=== PATIENT | female | born 1985 | race Caucasian/White ===

== ENCOUNTER → 2018-07-15 09:31 | Outpatient (CLI) | payer OTHER, SELFPAY ==
[2018-07-17 10:26] LABS: HPV HC, High Risk Negative (Negative)
== END ==
PROVIDERS: Visit Provider Obstetrics & Gynecology
DX: Z12.72 Encounter for screening for malignant neoplasm of vagina (principal)
CPT/HCPCS: 87624; 88175; G0145

== ENCOUNTER → 2019-07-16 11:40 | Outpatient (CLI) | payer OTHER, SELFPAY ==
[2017-02-01 00:01] VITALS: BMI 28.7
== END ==
PROVIDERS: Visit Provider Obstetrics & Gynecology
DX: Z34.81 Encounter for supervision of other normal pregnancy, first trimester (principal); Z12.4 Encounter for screening for malignant neoplasm of cervix; Z11.3 Encounter for screening for infections with a predominantly sexual mode of transmission

== ENCOUNTER → 2020-07-19 16:50 | Outpatient (CLI) | payer OTHER, SELFPAY ==
[2017-02-01 00:01] VITALS: BMI 28.7
[2020-07-25 10:40] LABS: HPV APTIMA, High Risk Negative (Negative)
[2020-07-26 20:13] LABS: HPV Reflexed? YES, CHARGE PATIENT
== END ==
PROVIDERS: Visit Provider Student in an Organized Health Care Education/Training Program
DX: Z12.4 Encounter for screening for malignant neoplasm of cervix (principal)
CPT/HCPCS: 87624; 88175; G0145

== ENCOUNTER → 2020-08-30 15:48 | Outpatient (CLI) | payer OTHER, SELFPAY ==
[2017-02-01 00:01] VITALS: BMI 28.7
[2020-09-03 03:07] LABS: Chlamydia By Nucleic Acid AMP Negative (Negative)
[2020-09-05 04:27] LABS: Gonococcus By Nucleic Acid AMP Negative (Negative)
== END ==
PROVIDERS: Visit Provider Student in an Organized Health Care Education/Training Program
DX: Z32.01 Encounter for pregnancy test, result positive (principal)
CPT/HCPCS: 87491; 87591

== ENCOUNTER → 2020-09-05 13:55 | Outpatient (CLI) | payer OTHER, SELFPAY ==
[2017-02-01 00:01] VITALS: BMI 28.7
[2020-09-05 17:17] LABS: Absolute Lymphocyte Count 1.65 X10^3/uL (0.83-4.51); Absolute Neutrophil Count 6.8 X10^3/uL (2.0-7.7); Basophil# 0.05 X10^3/uL; Basophil% 0.5 % (0-1); Eosinophil# 0.19 X10^3/uL; Eosinophils% 2.1 % (0-5); Hematocrit 37.4 % (37-47); Hemoglobin 12.4 g/dL (12.0-15.0); Lymphocyte # 1.65 X10^3/ul (4.0); Mean Corp Hgb Conc 33.2 g/dL (32-36); Mean Corpuscular Hgb 30.2 pg (27.0-32.0); Mean Corpuscular Volume 91.2 fL (81-99); Mean Platelet Vol. 11.3 fl (6.2-12.0); Monocyte# 0.49 X10^3/uL; Monocyte% 5.3 % (0-10); NRBC Flagged by Analyzer 0 % (0-5); Neutrophil # 6.76 X10^3/uL (2.7-7.7); Neutrophil % 73.8 % (47-70); Platelet Count 314 K/mm3 (150-450); White Blood Count 9.2 K/mm3 (4.4-11.0)
[2020-09-05 17:40] LABS: T4 Free Direct 0.94 ng/dL (0.76-1.46); Thyroid Stim Hormone (TSH) 4.05 uIU/mL (0.358-3.74)
[2020-09-06 13:08] LABS: HIV - WCH Non-Reactive (Nonreactive); Hepatitis B Surface Antigen Non-Reactive (Nonreactive); Hepatitis C Antibody Non-Reactive (Nonreactive); Rubella IgG Reactive (Nonreactive)
[2020-09-08 02:34] LABS: Prenatal RPR NONREACTIVE (NONREACTIVE)
== END ==
PROVIDERS: Visit Provider Obstetrics & Gynecology
DX: Z34.81 Encounter for supervision of other normal pregnancy, first trimester (principal)
CPT/HCPCS: 36415; 81002; 84439; 84443; 85025; 86703; 86762; 86803; 87340

== ENCOUNTER → 2020-10-07 14:57 | Outpatient (CLI) | payer OTHER, SELFPAY ==
[2017-02-01 00:01] VITALS: BMI 28.7
[2020-10-07 17:12] LABS: Free T3 2.1 pg/mL (2.18-3.98); T4 Free Direct 1.02 ng/dL (0.76-1.46); Thyroid Stim Hormone (TSH) 5.12 uIU/mL (0.358-3.74)
== END ==
PROVIDERS: Visit Provider Student in an Organized Health Care Education/Training Program
DX: Z32.01 Encounter for pregnancy test, result positive (principal)
CPT/HCPCS: 36415; 84439; 84443; 84481; 87086

== ENCOUNTER → 2020-12-26 08:29 | Outpatient (CLI) | payer OTHER, SELFPAY ==
[2020-12-26 09:09] LABS: Hematocrit 36.9 % (37-47); Hemoglobin 12.1 g/dL (12.0-15.0); Mean Corp Hgb Conc 32.8 g/dL (32-36); Mean Corpuscular Hgb 30.6 pg (27.0-32.0); Mean Corpuscular Volume 93.4 fL (81-99); Platelet Count 297 K/mm3 (150-450); RBC Distribution Width CV 12.5 % (11.6-14.6); RBC Distribution Width SD 42.9 fl (35.1-43.9); Red Blood Count 3.95 M/mm3 (4.2-5.4)
[2020-12-26 09:14] LABS: Glucose Challenge Gest 1H 50g 100 mg/dL (70-140)
== END ==
PROVIDERS: Visit Provider Student in an Organized Health Care Education/Training Program
DX: Z34.82 Encounter for supervision of other normal pregnancy, second trimester (principal)
CPT/HCPCS: 36415; 82950; 85027

== ENCOUNTER → 2021-03-27 17:13 | Outpatient (CLI) | payer OTHER, SELFPAY ==
[2017-02-01 00:01] VITALS: BMI 28.7
== END ==
PROVIDERS: Visit Provider Student in an Organized Health Care Education/Training Program
DX: Z36.85 Encounter for antenatal screening for Streptococcus B (principal)
CPT/HCPCS: 87077; 87081; 87186

== ENCOUNTER 2021-04-27 07:20 | Inpatient (IN) | payer OTHER, SELFPAY ==
[2017-02-01 00:01] VITALS: BMI 28.7
[2021-04-27] VITALS (42 sets, daily range): BP systolic 110–158; BP diastolic 62–91; PULSE 67–107; RESP 18; TEMP 36.5–37.2; O2SAT 92–100; BMI 29.0
--- NOTE | 2021-04-27 08:28 | PCM.HP.BLA ---
History and Physical Date of Admission: 04/27/21 Chief complaint: Induction of labor at term History present illness: 35-year-old 41 weeks and 5 days with KEVIN: 04/15/2021 by LMP arrives for induction of labor at term. Denies headache, chest pain, shortness of breath, nausea vomiting, right upper quadrant pain. Patient states good movement. complicated by AMA, MTHFR Homo, TAHIR-1 heterozygous, Scott's Obstetric history: G1: Primary section for cord prolapse 41 weeks 04/11/2013 G2: TOLAC 40 weeks 02/09/2015 G3: TOLAC 41wk 02/01/2017 G4: SAB G5: Current PMH: MTHFR Homo, TAHIR-1 heterozygous, Scott's Medications: PNV, ASA, Synthroid PSH: LEEP, C/S Allergies: PCN (Hives) Social: Denies smoking, alcohol use, drug use Family history: Denies history DVT or PE Review of systems: Besides above pertinent positive review systems performed found to be negative Physical Exam: Vitals: Blood pressure 113/76 pulse 90 SpO2 97 General: Normal-appearing no acute distress HEENT: Normocephalic/atraumatic no cervical of adenopathy Cardiac/respiratory: No use of accessory muscles nonlabored breathing Abdomen: Soft, nontender, gravid Extremities: No peripheral edema normal peripheral pulses Psych: Normal affect normal demeanor nonpressured speech Assessment and plan: 35 at 41 weeks and 5 days here for TOLAC at term. Admit labor and delivery 9 CFM GBS positive for clindamycin with penicillin allergy Pitocin induction, for AROM after penicillin Routine orders Anesthesia to see
[2021-04-27 08:33] LABS: Absolute Lymphocyte Count 1.96 X10^3/uL (0.83-4.51); Absolute Neutrophil Count 5.6 X10^3/uL (2.0-7.7); Basophil# 0.03 X10^3/uL; Basophil% 0.4 % (0-1); Eosinophil# 0.19 X10^3/uL; Eosinophils% 2.2 % (0-5); Hematocrit 37.7 % (37-47); Hemoglobin 12.3 g/dL (12.0-15.0); Lymphocyte # 1.96 X10^3/ul (0.83-4.51); Lymphocyte % 23.1 % (19-41); Mean Corp Hgb Conc 32.6 g/dL (32-36); Mean Corpuscular Hgb 28.6 pg (27.0-32.0); Mean Corpuscular Volume 87.7 fL (81-99); Mean Platelet Vol. 11.4 fl (6.2-12.0); Monocyte# 0.64 X10^3/uL; Monocyte% 7.5 % (0-10); NRBC Flagged by Analyzer 0 % (0-5); Neutrophil # 5.64 X10^3/uL (2.7-7.7); Neutrophil % 66.3 % (47-70); Platelet Count 225 K/mm3 (150-450); RBC Distribution Width CV 15.1 % (11.6-14.6); RBC Distribution Width SD 47.8 fl (35.1-43.9); White Blood Count 8.5 K/mm3 (4.4-11.0)
[2021-04-27] MEDS: Lactated Ringers 1,000 ML 50 ML IV (08:33)
[2021-04-27] MEDS: Oxytocin 30 units/NS 500 ml 30 UNITS/500 ML IV.SOLN IV (09:20)
[2021-04-27] MEDS: Lactated Ringers 500 ML 999 ML IV ×2 (11:24→14:28)
--- NOTE | 2021-04-27 12:57 | PN.OBGYN_ITS ---
Subjective Subjective Patient resting comfortably in chair. Going natural Objective Data Objective Data Vital Signs: Vital Signs Temp Pulse BP Pulse Ox 98.8 F 74 117/78 100 04/27/21 12:29 04/27/21 12:28 04/27/21 12:04/27/21 10:18 Weight: 169 lb 8.568 oz Body Mass Index (BMI) 29.0 Intake & Output: Intake and Output for Last 24 Hours 04/25/21 04/26/21 04/27/21 23:59 23:59 23:59 Intake Total 761.67 / 761.67 Balance 761.67 / 761.67 Lab / Micro Data Result Diagrams: 04/27/21 08:05 Labs: Laboratory Results - last 24 hr 04/27/21 08:05: WBC 8.5, RBC 4.30, Hgb 12.3, Hct 37.7, MCV 87.7, MCH 28.6, MCHC 32.6, RDW Std Deviation 47.8 H, RDW Coeff of Kena 15.1 H, Plt Count 225, MPV 11.4, Immature Gran % (Auto) 0.500, Neut % (Auto) 66.3, Lymph % (Auto) 23.1, [place] % (Auto) 7.5, Eos % (Auto) 2.2, Baso % (Auto) 0.4, Absolute Neuts (auto) 5.6, Absolute Lymphs (auto) 1.96, Nucleated RBC % 0 04/27/21 08:05: Blood Type A POSITIVE, Antibody Screen NEGATIVE Micro: Microbiology 04/27/21 08:05 Mucosa - Nose SARS-CoV-2 Antigen (Rapid) - Final Physical Exam Const alert, oriented x3, no apparent distress, average body habitus, healthy appearing and well nourished HEENT normocephalic and moist oral mucous membranes Head and Scalp: atraumatic Resp normal respiratory effort, no retractions and no use of accessory muscles Narrative: Cervical exam: 360/-3. AROM clear fluid Extremity normal to inspection, full ROM and no clubbing, cyanosis or edema Psych mental status grossly normal, affect normal, speech normal and activity/motor behavior normal NST FHR Rate Baby A Baseline: 140 Variability:: Moderate Accelerations:: 15 x 15 Decelerations:: None Uterine Activity:: Every 8 minutes Assessment & Plan (1) 41 weeks gestation of : PLAN: Patient seen and examined. Comfortable going natural currently. Cervical exam /-3. AROM clear fluid. We will continue to titrate Pitocin. Continue clindamycin for GBS prophylaxis.
[2021-04-27] MEDS: fentaNYL-bupivacaine (epidural) 100 ML BAG EPIDURAL (16:20)
[2021-04-27] MEDS: Oxytocin 30 units/NS 500 ml 30 UNITS/500 ML IV.SOLN 334 UNITS IV (17:45)
--- NOTE | 2021-04-27 17:51 | EX.PCM.OBRPT ---
Vaginal Delivery Findings Description of Procedure: Normal spontaneous vaginal delivery of a viable male , AZRA. Head and shoulders delivered with ease. Cord cut and clamped. Baby handed off to mom. Placenta delivered via cord traction and fundal massage. No lacerations noted. EBL 250 cc Apgars 9/9
[2021-04-27] MEDS: 0.9% Saline Lock 10 ML Syringe IV (21:02)
[2021-04-27] MEDS: Ibuprofen 600 MG Tablet PO (22:03)
[2021-04-28 01:00] VITALS: BP 110/75; PULSE 72; RESP 16; TEMP 36.6; O2SAT 97
[2021-04-28 04:10] VITALS: BP 106/66; PULSE 69; RESP 16; TEMP 36.4; O2SAT 97
[2021-04-28] MEDS: Levothyroxine 88 MCG Tablet PO (06:22)
[2021-04-28 08:46] VITALS: BP 101/66; PULSE 79; RESP 16; TEMP 36.7; O2SAT 98
[2021-04-28] MEDS: Senna/Docusate Sodium 1 Tablet PO (08:57)
[2021-04-28] MEDS: Ibuprofen 600 MG Tablet PO ×2 (08:57→15:19)
[2021-04-28 11:27] VITALS: BP 95/68; PULSE 74; RESP 16; TEMP 36.1; O2SAT 98
[2021-04-28 15:20] VITALS: BP 106/88; PULSE 71; RESP 16; TEMP 36.6
--- NOTE | 2021-04-28 17:40 | PCM.PN.OB ---
Subjective Subjective No issues overnight or complaints today. Out of bed, ambulating. Denies heavy lochia. is nursing well. Patient is considering discharge home this evening or tomorrow as her oldest will be 8 years old tomorrow. Objective Data Objective Data Vital Signs: Vital Signs Temp Pulse Resp BP Pulse Ox 97.8 F 71 16 106/88 H 98 04/28/21 15:20 04/28/21 15:20 04/28/21 15:20 04/28/21 15:20 04/28/21 11:27 Oxygen Delivery Method Room Air Weight: 76.9 kg Body Mass Index (BMI) 29.0 Intake & Output: Intake and Output for Last 24 Hours 04/26/21 04/27/21 04/28/21 23:59 23:59 23:59 Intake Total 2750.90 / 2750.90 Output Total 300 / 300 800 / 800 Balance 2450.90 / 2450.90 -800 / -800 Lab / Micro Data Result Diagrams: 04/27/21 08:05 Micro: Microbiology 04/27/21 08:05 Mucosa - Nose SARS-CoV-2 Antigen (Rapid) - Final Physical Exam Const alert, oriented x3 and no apparent distress Resp normal respiratory effort and normal air movement Cardio regular rate, regular rhythm, S1 normal heart sound and S2 normal heart sound Uterus Palpation: uterus fundus firm and other OB fundus nontender Extremity no calf tenderness Neuro oriented x3 Assessment & Plan (1) (vaginal after ): COMMENT: day #1 PLAN: A positive Breast-feeding Routine care We will plan for DC home this evening or tomorrow morning at patient preference
--- NOTE | 2021-04-28 17:46 | PCM.DC ---
Discharge Instructions Diet Discharge Diet: No restrictions Activity May resume sexual activity in: 4-6 weeks Dressing / Incision Call your doctor if you observe: Using more than 1 pad per hour, Shortness of breath, Chest pain, Calf discomfort, Uncontrolled pain and - (Persistent or severe headache) Follow Up Care Please Follow Up With: Zuleyka Arriola MD When: 3 weeks for telehealth follow up 6 weeks for visit Test Results: Test results from this visit will be discussed in further detail at your follow-up appointment, if applicable. Discharge Plan Admission Admit Date/Time: 04/27/21 07:20 Primary Reason for Your Visit: Vaginal after section Attending Provider: Manan Mcgrath Primary Care Provider: Care Physician,Radha Primary Instructions Patient Instructions: After a Vaginal Discharge Orders/Prescriptions Prescriptions: New ibuprofen 600 mg tablet 600 mg PO Q8H PRN PRN (Reason: pain) Qty: 30 RF: 0 Continued Prenatabs FA 1 TABLET tablet 1 tab PO DAILY RF: 0 levothyroxine 88 mcg Tablet 88 mcg PO DAILY RF: 0 Discontinued folic acid 1 MG tablet 1 mg PO DAILY@0800 RF: 0 aspirin [Baby Aspirin] 81 mg Tablet,Chewable 81 mg PO DAILY RF: 0 Referrals / Follow Up: Care Physician,No Primary [Primary Care Provider] - Disposition Disposition (needs filled in before D/C Order can be placed): Home, Self Care
[2021-04-28 21:24] VITALS: BP 112/73; PULSE 71; RESP 18; TEMP 36.3
== END 2021-04-28 22:00 | disposition home or self-care (01) | DRG 807 ==
PROVIDERS: Admitting Provider Obstetrics & Gynecology; Referring Provider Obstetrics & Gynecology; Visit Provider Obstetrics & Gynecology
DX: O34.219 Maternal care for unspecified type scar from previous cesarean delivery (principal); Z37.0 Single live birth; O99.284 Endocrine, nutritional and metabolic diseases complicating childbirth; Z3A.41 41 weeks gestation of pregnancy; E06.3 Autoimmune thyroiditis
CPT/HCPCS: 59025; 59050; 85025; 86850; 86900; 86901; 87426; 99218; J7120; A4216; G0378

== ENCOUNTER → 2022-12-06 | Outpatient (CLI) | payer BC, SELFPAY ==
[2022-12-06 17:13] LABS: Absolute Lymphocyte Count 2.24 X10^3/uL (0.83-4.51); Absolute Neutrophil Count 6.4 X10^3/uL (2.0-7.7); Basophil# 0.04 X10^3/uL; Basophil% 0.4 % (0-1); Eosinophil# 0.16 X10^3/uL; Eosinophils% 1.7 % (0-5); Hematocrit 35.5 % (37-47); Hemoglobin 11.6 g/dL (12.0-15.0); Lymphocyte # 2.24 X10^3/ul (0.83-4.51); Lymphocyte % 23.8 % (19-41); Mean Corp Hgb Conc 32.7 g/dL (32-36); Mean Corpuscular Hgb 28.8 pg (27.0-32.0); Mean Corpuscular Volume 88.1 fL (81-99); Mean Platelet Vol. 9.7 fl (6.2-12.0); Monocyte# 0.54 X10^3/uL; Monocyte% 5.7 % (0-10); NRBC Flagged by Analyzer 0 % (0-5); Neutrophil % 68.1 % (47-70); Platelet Count 352 K/mm3 (150-450); RBC Distribution Width CV 13.4 % (11.6-14.6); RBC Distribution Width SD 43.2 fl (35.1-43.9); Red Blood Count 4.03 M/mm3 (4.2-5.4); White Blood Count 9.4 K/mm3 (4.4-11.0)
[2022-12-06 18:46] LABS: HIV - WCH Non-Reactive (Nonreactive); Hepatitis B Surface Antigen Non-Reactive (Nonreactive); Hepatitis C Antibody Non-Reactive (Nonreactive); Rubella IgG Reactive (Nonreactive); Syphilis Antibodies Non-reactive
[2022-12-08 12:37] LABS: V-Zoster IgG (Immunity) 730 index (Immune >165)
== END | disposition home or self-care (01) ==
LOC: WOBLAB 16:43
PROVIDERS: Visit Provider Obstetrics & Gynecology
DX: Z34.81 Encounter for supervision of other normal pregnancy, first trimester (principal)
CPT/HCPCS: 36415; 85025; 86703; 86762; 86780; 86787; 86803; 87086; 87340

== ENCOUNTER → 2023-04-11 | Outpatient (CLI) | payer BC, SELFPAY ==
[2023-04-11 10:12] LABS: Absolute Lymphocyte Count 1.62 X10^3/uL (0.83-4.51); Absolute Neutrophil Count 6.3 X10^3/uL (2.0-7.7); Basophil# 0.04 X10^3/uL; Basophil% 0.5 % (0-1); Eosinophil# 0.24 X10^3/uL; Eosinophils% 2.8 % (0-5); Hematocrit 36.2 % (37-47); Hemoglobin 11.6 g/dL (12.0-15.0); Lymphocyte # 1.62 X10^3/ul (0.83-4.51); Lymphocyte % 18.6 % (19-41); Mean Corpuscular Hgb 29.1 pg (27.0-32.0); Mean Corpuscular Volume 90.7 fL (81-99); Mean Platelet Vol. 10.5 fl (6.2-12.0); Monocyte# 0.46 X10^3/uL; Monocyte% 5.3 % (0-10); NRBC Flagged by Analyzer 0 % (0-5); Neutrophil # 6.33 X10^3/uL (2.7-7.7); Neutrophil % 72.5 % (47-70); Platelet Count 296 K/mm3 (150-450); RBC Distribution Width CV 12.8 % (11.6-14.6); RBC Distribution Width SD 42.5 fl (35.1-43.9); Red Blood Count 3.99 M/mm3 (4.2-5.4); White Blood Count 8.7 K/mm3 (4.4-11.0)
[2023-04-11 10:23] LABS: Glucose Challenge Gest 1H 50g 104 mg/dL (70-140)
[2023-04-11 10:45] LABS: Syphilis Antibodies Non-reactive
== END | disposition home or self-care (01) ==
LOC: WOBLAB 08:54
PROVIDERS: Visit Provider Obstetrics & Gynecology
DX: Z34.82 Encounter for supervision of other normal pregnancy, second trimester (principal)
CPT/HCPCS: 36415; 82950; 85025; 86780

== ENCOUNTER 2023-07-16 14:25 | Inpatient (IN) | payer BC, SELFPAY ==
[2023-07-16] VITALS (17 sets, daily range): BP systolic 105–132; BP diastolic 62–87; PULSE 81–116; TEMP 36.4–37.1; O2SAT 98; BMI 30.4
[2023-07-16] MEDS: Clindamycin 900 MG/50 ML BAG 75 MG IV (15:10)
[2023-07-16] MEDS: Lactated Ringers 1,000 ML 50 ML IV (15:15)
[2023-07-16 15:27] LABS: Absolute Lymphocyte Count 1.84 X10^3/uL (0.83-4.51); Absolute Neutrophil Count 7.1 X10^3/uL (2.0-7.7); Basophil# 0.03 X10^3/uL; Basophil% 0.3 % (0-1); Hematocrit 34.5 % (37-47); Hemoglobin 11.1 g/dL (12.0-15.0); Lymphocyte # 1.84 X10^3/ul (0.83-4.51); Lymphocyte % 19.3 % (19-41); Mean Corp Hgb Conc 32.2 g/dL (32-36); Mean Corpuscular Hgb 27.1 pg (27.0-32.0); Mean Corpuscular Volume 84.4 fL (81-99); Mean Platelet Vol. 10.4 fl (6.2-12.0); Monocyte# 0.42 X10^3/uL; Monocyte% 4.4 % (0-10); NRBC Flagged by Analyzer 0 % (0-5); Neutrophil # 7.11 X10^3/uL (2.7-7.7); Neutrophil % 74.6 % (47-70); Platelet Count 263 K/mm3 (150-450); RBC Distribution Width CV 13.5 % (11.6-14.6); RBC Distribution Width SD 41.8 fl (35.1-43.9); Red Blood Count 4.09 M/mm3 (4.2-5.4); White Blood Count 9.5 K/mm3 (4.4-11.0)
[2023-07-16 16:44] LABS: Syphilis Antibodies Non-reactive
--- NOTE | 2023-07-16 20:42 | HP.PCM.OB_ITS ---
HPI - General General Date of Admission: 07/16/23 Date of Service: 07/16/23 HPI Narrative EMILIA MERLOS, is a 37 F who presents with ctxs. Maternal Data Information Final KEVIN: 07/08/23 Gestational age: 41&1 PFSH [facility] Medical History (Updated 07/16/23 @ 20:[address] Sanford Hinkle MD) Advanced maternal age (AMA) in Heterozygous for MTHFR gene mutation Thyroid disorder Vaginal after Home Medications vits,calcium no.78-iron fumarate-folic acid 29 mg-1 mg tablet (Prenatabs FA) 1 tab PO DAILY 02/08/15 [History Last Taken 04/26/21 22:00] aspirin 81 mg tablet,delayed release 81 mg PO DAILY prophalyxis 07/16/23 [History Last Taken 07/15/23 20:00] levothyroxine 125 mcg tablet 125 mcg PO DAILY hypothyroidism 07/16/23 [History Last Taken 07/16/23 07:01] liothyronine 5 mcg tablet 5 mcg PO DAILY hypothyroidism 07/16/23 [History Last Taken 07/16/23 07:00] Allergy/AdvReac Type Severity Reaction Status Date / Time Penicillins Allergy Hives Verified 07/16/23 15:55 Surgical History (Updated 07/16/23 @ 20:[address] Sanford Hinkle MD) History of gynecologic surgery Previous section Social History Smoking Status: Never smoker History Elective abortions Hx Para 4 Spontaneous abortions Hx # Term Pregnancies Ectopic pregnancies Hx # Pregnancies Multiple births # of living children NST FHR Rate Baby A Baseline: 145 Variability:: Moderate Accelerations:: 15 x 15 Decelerations:: Variable Vital Signs Vital Signs Vital Signs: 07/16/23 14:50 07/16/23 14:50 07/16/23 14:51 Temperature Temperature Source Tympanic Pulse Rate 100 Blood Pressure 129/84 H BP Systolic 129 BP Diastolic 84 Pulse Ox 07/16/23 14:51 07/16/23 16:45 07/16/23 16:45 Temperature 98.8 F Temperature Source Pulse Rate 97 Blood Pressure 132/77 H BP Systolic 132 BP Diastolic 77 Pulse Ox 07/16/23 16:45 07/16/23 16:46 07/16/23 16:46 Temperature Temperature Source Temporal Pulse Rate 113 H Blood Pressure BP Systolic BP Diastolic Pulse Ox 98 07/16/23 16:45 07/16/23 18:00 07/16/23 18:00 Temperature 98.5 F Temperature Source Pulse Rate 96 Blood Pressure 121/73 H BP Systolic 121 BP Diastolic 73 Pulse Ox 07/16/23 18:01 07/16/23 18:01 07/16/23 19:17 Temperature 98.1 F Temperature Source Temporal Pulse Rate Blood Pressure 117/71 BP Systolic 117 BP Diastolic 71 Pulse Ox 07/16/23 19:17 07/16/23 20:16 07/16/23 20:17 Temperature Temperature Source Temporal Pulse Rate 84 Blood Pressure 125/72 H BP Systolic 125 BP Diastolic 72 Pulse Ox 07/16/23 20:17 07/16/23 20:16 Temperature 98.8 F Temperature Source Pulse Rate 84 Blood Pressure BP Systolic BP Diastolic Pulse Ox Weight Weight: 177 lb 8 oz Body Mass Index (BMI) 30.4 Labs Labs Labs: Blood Type A POSITIVE Antibody Screen NEGATIVE Hct 34.5 % (37-47) L Hgb 11.1 g/dL (12.0-15.0) L Syphilis Total Ab Non-reactive VZV IgG Antibody 730 index (Immune >165) Rubella IgG Antibody Reactive (Nonreactive) Hep Bs Antigen Non-Reactive (Nonreactive) Hepatitis C Antibody Non-Reactive (Nonreactive) Chlamydia DNA (MARYA) Negative (Negative) N.gonorrhoeae DNA (MARYA) Negative (Negative) HIV 1&2 Antibody Non-Reactive (Nonreactive) Glucose 1 Hr 50 gm 104 mg/dL (70-140) Group B Strep DNA POSITIVE (Negative) H Rhogam given: No Miscellaneous Test Assessment & Plan (1) AMA (advanced maternal age) multigravida 35+: QUALIFIERS: Trimester: third trimester Qualified Code(s): O09.523 - Supervision of elderly multigravida, third trimester COMMENT: @ 41&1 (2) Hx successful (vaginal after ), currently : (3) Post-dates : QUALIFIERS: Post-term type: 40-42 weeks gestation Qualified Code(s): O48.0 - Post-term PLAN: Plan Admit to L&D Expectant management AROM clear fluid GBS positive - clindamycin per sensitivities Pain - plans for nitrous, declines epidural at this time EFW - less than 4500g, patient with adequate pelvis TOLAC - informed consent signed after discussing R/B/A
--- NOTE | 2023-07-16 22:48 | EX.PCM.OBRPT ---
Maternal Data Information Final KEVIN: 07/08/23 Gestational age: 41&1 Vaginal Delivery Maternal Presentation Maternal Presentation: Active Labor Maternal Presentation: Patient presented in early labor. After AROM she was in active labor. Operative Information Date of Procedure: 07/16/23 Pre-Operative Diagnosis: (1) AMA (2) Post-dates Post-Operative Diagnosis: Same Surgery / Procedure Performed: Spontaneous Vaginal Delivery Type of Anesthesia: None Estimated Blood Loss: 200ml Findings Description of Procedure: Patient prepped & draped when C/C/+2. She pushed well to deliver the head. Tight nuchal cord was clamped & cut. head gently guided to allow delivery of anterior and posterior shoulders. No excess traction placed on head. Body delivered easily. Placenta delivered with gentle traction and good uterine tone obtained. Presentation: LYDIA Amniotic Membrane Rupture Type: Artificial Amniotic Fluid Description: Clear Placental Delivery Description: Expressed Placenta Disposition: [facility] Specimen(s) Removed: Placenta Cord Vessel Description: 3 Vessels Cord Entanglement: Around neck x 1, tight Nuchal Cord Compression: Without compression Infant A Gender: Male (1 minute): 1 (5 minute): 9 Delayed Cord Clamping: No Post Vaginal Delivery Medications Given After Delivery: IV Pitocin and IM Pitocin Episiotomy Description: None Laceration: None Complication Complications: None
[2023-07-16] MEDS: Oxytocin 15 Units/NS 250ml 15 UNITS/250 ML IV.SOLN 83 UNITS IV (23:15)
[2023-07-16] MEDS: Oxytocin 10 UNITS/ML Vial IM (23:18)
[2023-07-16] MEDS: Ketorolac 30 MG/ML Syringe IV (23:31)
[2023-07-17] VITALS (16 sets, daily range): BP systolic 96–133; BP diastolic 51–69; PULSE 74–91; RESP 14–18; TEMP 36.6–36.9; O2SAT 97–99
[2023-07-17] MEDS: Levothyroxine 125 MCG Tablet PO (07:09)
[2023-07-17] MEDS: Liothyronine 5 MCG Tablet PO (07:10)
--- NOTE | 2023-07-17 08:22 | PCM.PN.OB ---
Subjective Subjective Patient seen at bedside. Feeling good. Denies any pain. Ambulating and voiding without difficulty. Lochia decreasing. Objective Data Objective Data Vital Signs: Vital Signs Temp Pulse Resp BP Pulse Ox O2 Del Method 98 F 74 16 96/51 L 97 Room Air 07/17/23 04:24 07/17/23 04:24 07/17/23 04:24 07/17/23 04:24 07/17/23 04:24 07/17/23 04:24 Oxygen Delivery Method Room Air Weight: 177 lb 8 oz Body Mass Index (BMI) 30.4 Intake & Output: Intake and Output for Last 24 Hours 07/15/23 07/16/23 07/17/23 23:59 23:59 23:59 Intake Total 1050.0 / 1050.0 250 / 250 Output Total 200 / 200 Balance 1050.0 / 1050.0 50 / 50 Lab / Micro Data 07/16/23 15:10 Labs: Laboratory Results - last 24 hr 07/16/23 15:10: WBC 9.5, RBC 4.09 L, Hgb 11.1 L, Hct 34.5 L, MCV 84.4, MCH 27.1, MCHC 32.2, RDW Std Deviation 41.8, RDW Coeff of Kena 13.5, Plt Count 263, MPV 10.4, Immature Gran % (Auto) 0.400, Neut % (Auto) 74.6 H, Lymph % (Auto) 19.3, [place] % (Auto) 4.4, Eos % (Auto) 1.0, Baso % (Auto) 0.3, Absolute Neuts (auto) 7.1, Absolute Lymphs (auto) 1.84, Nucleated RBC % 0, Syphilis Total Ab Non-reactive, Blood Type A POSITIVE, Antibody Screen NEGATIVE ROS Eyes Eyes: Denies blurry vision, change in vision or spots in vision ENT HEENT: Denies dizziness or headache(s) Cardiovascular Cardiovascular: Denies abdominal pain, chest pain or dyspnea Respiratory/Chest Respiratory/Chest: Denies cough, dyspnea, shortness of breath at rest or shortness of breath with exertion Gastrointestinal Gastrointestinal: Denies abdominal pain, diarrhea or vomiting Genitourinary Genitourinary: Denies change in urinary stream, difficulty urinating or dysuria Musculoskeletal Musculoskeletal: Reports none Integumentary Integumentary: Denies rash Neurologic Neurologic: Denies dizziness, headache(s), memory loss or weakness Physical Exam Const alert and no apparent distress General Appearance: cooperative and comfortable Exam Limitations: no limitations HEENT normocephalic Eyes General Eye: normal appearance of both eyes Neck full ROM General: normal visual inspection Chest Chest: symmetrical chest wall rise Resp normal respiratory effort and normal air movement Effort and Inspection: symmetric chest movement Auscultation: clear to auscultation bilaterally Cardio regular rate and regular rhythm GI normal to inspection, nondistended, normoactive bowel sounds Back/Spine normal ROM Extremity full ROM and no calf tenderness General Extremity: normal exam except as noted Skin no rashes or lesions noted Neuro CN's II-XII intact bilaterally Psych mental status grossly normal Assessment & Plan (1) , delivered, current hospitalization: (2) AMA (advanced maternal age) multigravida 35+: QUALIFIERS: Trimester: third trimester Qualified Code(s): O09.523 - Supervision of elderly multigravida, third trimester COMMENT: @ 41&1 (3) Care and examination of lactating mother: PLAN: Plan PPD 1 Routine care support Pain control Anticipate discharge home tomorrow
[2023-07-17] MEDS: Acetaminophen 500 MG Tablet 1000 MG PO (09:12)
[2023-07-17] MEDS: Ibuprofen 600 MG Tablet PO (12:55)
[2023-07-17] MEDS: Senna/Docusate Sodium 1 Tablet PO (20:13)
[2023-07-18 03:36] VITALS: BP 100/54; PULSE 82
[2023-07-18 03:37] VITALS: BP 100/54; PULSE 82; RESP 18
[2023-07-18] MEDS: Liothyronine 5 MCG Tablet PO (06:04)
[2023-07-18] MEDS: Levothyroxine 125 MCG Tablet PO (06:04)
--- NOTE | 2023-07-18 06:13 | PCM.DC.SUM ---
Providers Date of Admission: 07/16/23 Primary Care Physician: Dr. Nghia Gauthier, Reason For Visit: VAGINAL DELIVERY Diagnosis Discharge Diagnosis (1) , delivered, current hospitalization: Status: Acute Code(s): O34.219 - Maternal care for unspecified type scar from previous delivery (2) AMA (advanced maternal age) multigravida 35+: Status: Acute Code(s): O09.529 - Supervision of elderly multigravida, unspecified trimester Qualifiers: Trimester: third trimester Qualified Code(s): O09.523 - Supervision of elderly multigravida, third trimester (3) Care and examination of lactating mother: Status: Acute Code(s): Z39.1 - Encounter for care and examination of lactating mother Plan PPD 2 Routine care D/C home with follow up in office Medications at Discharge Home Medications vits,calcium no.78-iron fumarate-folic acid 29 mg-1 mg tablet (Prenatabs FA) 1 tab PO DAILY 02/08/15 levothyroxine 125 mcg tablet 125 mcg PO DAILY hypothyroidism 07/16/23 liothyronine 5 mcg tablet 5 mcg PO DAILY hypothyroidism 07/16/23 Hospital Course Operations None Summary of Care Provided Minutes Spent on Discharge: 20 Hospital Course: Patient had . Hospital course was uneventful Physical Exam Const alert and no apparent distress General Appearance: cooperative and comfortable Exam Limitations: no limitations HEENT normocephalic Eyes General Eye: normal appearance of both eyes Neck full ROM General: normal visual inspection Chest Chest: symmetrical chest wall rise Resp normal respiratory effort and normal air movement Effort and Inspection: symmetric chest movement Auscultation: clear to auscultation bilaterally Cardio regular rate and regular rhythm GI normal to inspection, nondistended, normoactive bowel sounds Back/Spine normal ROM Extremity full ROM and no calf tenderness General Extremity: normal exam except as noted Skin no rashes or lesions noted Neuro CN's II-XII intact bilaterally Psych mental status grossly normal Weight / BMI Weight Weight: 177 lb 8 oz Body Mass Index (BMI) 30.4 ABG / Lab / Microbiology Data 07/16/23 15:10 D/C Instructions Discharge Diet: No restrictions Discharge Activity: Return to Normal Activity, May Shower and May Take a Tub Bath May resume sexual activity in: 4-6 weeks Weight Bearing Status: Weight bearing as tolerated Call your doctor if you observe: Fever of 101 or Higher, Inability to urinate, Using more than 1 pad per hour, Shortness of breath, Dizziness, Swelling in the ankles, Chest pain, Calf discomfort and Uncontrolled pain Please Follow Up With: Ricarda Mariano CNM When: Within 10 days Meaningful Use Info Meaningful Use Diagnoses (Choose all that apply): None applicable Discharge Plan Admission Admit Date/Time: 07/16/23 14:25 Primary Reason for Your Visit: Labor and Delivery Attending Provider: Sanford Hinkle Primary Care Provider: Nghia Gauthier Discharge Orders/Prescriptions Prescriptions: Continued Prenatabs FA 1 TABLET tablet 1 tab PO DAILY levothyroxine 125 mcg tablet 125 mcg PO DAILY Patient Comments: TAKE 1 TABLET BY MOUTH ONCE DAILY. TAKE ON EMPTY STOMACH. FOR THYROID. liothyronine 5 mcg tablet 5 mcg PO DAILY Patient Comments: TAKE 2 TABLETS BY MOUTH EVERY DAY IN THE MORNING Discontinued aspirin 81 mg tablet,delayed release (DR/EC) 81 mg PO DAILY Patient Comments: TAKE 1 TABLET BY MOUTH EVERY DAY Referrals / Follow Up: Nghia Gauthier DO [Primary Care Provider] - Disposition Disposition (needs filled in before D/C Order can be placed): Home, Self Care
[2023-07-18 08:35] VITALS: BP 110/76; PULSE 96; RESP 18; TEMP 37; O2SAT 99
[2023-07-18 11:48] VITALS: O2SAT 99
[2023-07-18 11:49] VITALS: BP 110/76; PULSE 93
[2023-07-18 12:36] VITALS: BP 110/76; PULSE 96; RESP 18; TEMP 37; O2SAT 99
--- NOTE | 2023-07-18 14:29 | CASEMGMT ---
Social Work Sw observed in patient status board that SDOH was needed. Sw completed chart review and notes that chart indicated that parents did not have a safe sleep space for baby. Sw presented to bedside, introduced self to mother and father of baby. Sw explained reason for sw touching base with them prior to discharge. - Sw asked MOB if she has a designated safe sleep space for baby to which MOB stated that she does. - Sw asked MOB she has any housing, food and transportation concerns. MOB denied. Sw also asked MOB if she has any safety issues, and MOB also denied. - Bedside RN stated that the SDOH questions and safe sleep questions were entered incorrectly in MOB chart. - Sw asked MOB if she has any other needs or concerns at this time, to which MOB denied. Sw provided support and encouraged parents to reach out to sw if they would need anything. - MOB and baby to be discharged today. Katlin Mike, TRUCK SERVICE MANAGER, FIELD REPRESENTATIVE
--- NOTE | 2023-07-22 15:51 | NURSING ---
Follow up phone call performed. Pt. and family doing well. Pt. reports having a head cold, but denies any OB related s+s that concerns her. going well. No issues with bleeding.
== END 2023-07-18 13:55 | disposition home or self-care (01) | DRG 807 ==
PROVIDERS: Admitting Provider Obstetrics & Gynecology; PCP Student in an Organized Health Care Education/Training Program; Referring Provider Obstetrics & Gynecology; Visit Provider Obstetrics & Gynecology
DX: O76 Abnormality in fetal heart rate and rhythm complicating labor and delivery (principal); Z37.0 Single live birth; E03.9 Hypothyroidism, unspecified; O34.219 Maternal care for unspecified type scar from previous cesarean delivery; O99.284 Endocrine, nutritional and metabolic diseases complicating childbirth; O69.81X0 Labor and delivery complicated by cord around neck, without compression, not applicable or unspecified; O48.0 Post-term pregnancy; O99.824 Streptococcus B carrier state complicating childbirth; Z3A.41 41 weeks gestation of pregnancy; Z79.899 Other long term (current) drug therapy
CPT/HCPCS: 59025; 59050; 85025; 86780; 86850; 86900; 86901; 99221; J7120; G0378

== ENCOUNTER 2025-07-12 18:55 | Emergency (ER) | payer BC, SELFPAY ==
[2025-07-12 18:55] VITALS: BP 139/98; PULSE 68; RESP 18; TEMP 36.3; O2SAT 98; BMI 25.1
--- NOTE | 2025-07-12 18:58 | RAD_ITS ---
PROCEDURE: HAND MIN 3 VIEWS 07/12/2025 REASON FOR EXAM: INJURY TECHNIQUE: Procedure Code: RICK Modality: DX Procedure: HAND MIN 3 VIEWS Laterality: FINDINGS: No evidence acute fracture or dislocation. The soft tissues are unremarkable. RAD/Hand Min 3 Views IMPRESSION: No acute osseous abnormalities. Reading Location: [id number]
--- NOTE | 2025-07-12 21:36 | ED.RN ---
Pt and state they are going to leave and no longer wish to be seen. LWBS.
== END 2025-07-12 21:42 | disposition left against medical advice (07) ==
LOC: ED 21:41
PROVIDERS: PCP Student in an Organized Health Care Education/Training Program
DX: Z53.21 Procedure and treatment not carried out due to patient leaving prior to being seen by health care provider (principal); S69.92XA Unspecified injury of left wrist, hand and finger(s), initial encounter
CPT/HCPCS: 73130